=== PATIENT | female | born 2000 | race Caucasian/White ===

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

== ENCOUNTER → 2023-04-20 08:12 | Outpatient (BNVA) | payer OTHER, SELFPAY | PROVIDERS: Visit Provider Physician Assistant ==

== ENCOUNTER 2023-04-26 08:03 | Outpatient (AMB) | payer MEDICAID, SELFPAY ==
--- NOTE | 2023-04-26 08:45 | A.OFFVIS_ITS ---
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 46.2 HPI Details Start time: 8.45am, End time: 9.38am ?I spent 48 minutes speaking with the patient on the phone plus an additional 5 minutes reviewing and updating records for a total of 53 minutes HPI Comments History of Present Illness Details Previous weight loss efforts: exercise and self diets Wakes up: 4pm, Sleeps: 8am Breakfast: skips Lunch: skips Dinner: 8pm (rice, beans and meat) Another meal: 2am rice, beans and meat Snacks: none Exercise: has Gym membership Fluids: Coffee: 1/week, tea: none, soda:Regular coke: 1 bottle per day, juice: 2/week, ETOH: none PFSH Medical History (Updated 04/26/23 @ 08:57 by Harry Turner MD) GERD (gastroesophageal reflux disease) Morbid obesity No pertinent past medical history Surgical History (Updated 04/20/23 @ 09:42 by Maryam Vergara CMA) Hx of knee surgery Hx of tonsillectomy History of surgery on arm Social History (Updated 04/20/23 @ 09:42 by Maryam Vergara CMA) Alcohol intake: current Alcohol intake frequency: holidays/special occasions only Alcohol type: other Comment: mix drinks Patient Tobacco Use Status: Never used Tobacco Assessment & Plan Assessment & Plan (1) Morbid obesity: Code(s): E66.01 - Morbid (severe) obesity due to excess calories Plan: 1.? Plan for lap sleeve gastrectomy. If diaphragmatic or ventral hernias are present at time of surgery, these will be repaired laparoscopically as well. Risks and complications were discussed in detail including possible conversion to an open procedure, anastomotic leak, bleeding requiring transfusion, small bowel obstruction, , DVT and pulmonary embolism, cardiac, or pulmonary complications, as intermediate accountant complications such as anastomotic ulcer, insufficient weight loss and vitamin deficiencies. I emphasized the importance of close follow-up, adherence to instructions and good communication. 2. Nutritional counseling. Start with one CELEBRATE REBUILD protein (buy at [facility]) shake (ONE scoop in 8oz low fat unsweetened almond milk) at 4pm-6pm, dinner at 7pm (10 forks of protein and 10 forks of salad/vegetables), another CELEBRATE REBUILD shake (ONE scoop in 8oz low fat unsweetened almond milk) at 9pm-11pm and 3 protein bars (CELEBRATE protein bars, buy at [facility]) at 12am-2am, 3am-5am and 6am-8am. So you do 2 protein shakes, 3 protein bars and one meal per day. Meal to include lean meat (beef, fish, pork, turkey, chicken), or [place] yogurt, or egg whites, or beans with a salad with olive oil and fruits (berries, pears, apples, kiwi). Avoid salt, breads, potatoes, rice, pasta, desserts. 3. Each shake would be drunk slowly, like coffee in a period of 2 hours. 4. Cut each bar in 4 pieces and eat each piece in 30min ?to make each bar last 2 hours. 5. I emphasized the importance of measuring accurately the food portion and measure it when serving the food in plate 6. The meal portions include 10 full-size forks of meat and 10 full-size forks of salad. You always eat the meat portion but you can replace up to 5 forks for salad/vegetables with rice, potatoes or pasta, or a fruit ?if you like. The less you do it the better weight loss will be. 7. One full-size fork is what it can be scooped on the fork without falling aside and not what can be bit with the fork. Use regular forks like those you find in a typical restaurant. 8.? Please send me weight measurements as soon as possible and then once a week. Always include your diet and exercise plan. 9. Start treadmill with an incline of 2.0 and speed of 3.0. Increase incline by 1 every 3 min to a max incline of 8.0, stay 3min at 8.0 and then return to 2.0 and repeat same steps until 400 calories are burned. Please do this 5 days per week. Goal is to burn 2000 calories per week on exercise. 10.?It is important of avoiding and for at least 18 months postoperatively and has been discussed at the infosession. 11. Goal is to lose at least 1.5-2lbs per week 12. Goal to lose 10% of your weight before surgery, which is about 28lbs. Ultimate weight goal: 253lbs before surgery 13. Please follow the diet plan exactly without any change. If you don't like something about the plan or you feel hungry you need to communicate with me so I can help you revise the plan. You should not change the plan yourself. Orders: Orders IRON PROFILE Today E66.01 - Morbid (severe) obesity due to excess calories, K21.9 - Gastro-esophageal reflux disease without esophagitis Comprehensive Met. Panel Today E66.01 - Morbid (severe) obesity due to excess calories, K21.9 - Gastro-esophageal reflux disease without esophagitis Vitamin B12 and Folate Today E66.01 - Morbid (severe) obesity due to excess calories, K21.9 - Gastro-esophageal reflux disease without esophagitis C Reactive Protein Today E66.01 - Morbid (severe) obesity due to excess calories, K21.9 - Gastro-esophageal reflux disease without esophagitis Vitamin B1 Today E66.01 - Morbid (severe) obesity due to excess calories, K21.9 - Gastro-esophageal reflux disease without esophagitis Vitamin A Today E66.01 - Morbid (severe) obesity due to excess calories, K21.9 - Gastro-esophageal reflux disease without esophagitis US abdomen comp w elastography Today E66.01 - Morbid (severe) obesity due to excess calories, K21.9 - Gastro-esophageal reflux disease without esophagitis FL upper GI w air Today E66.01 - Morbid (severe) obesity due to excess calories, K21.9 - Gastro-esophageal reflux disease without esophagitis Insulin Today E66.01 - Morbid (severe) obesity due to excess calories, K21.9 - Gastro-esophageal reflux disease without esophagitis Hemoglobin A1c Today E66.01 - Morbid (severe) obesity due to excess calories, K21.9 - Gastro-esophageal reflux disease without esophagitis H Pylori Breath Test Today E66.01 - Morbid (severe) obesity due to excess calories, K21.9 - Gastro-esophageal reflux disease without esophagitis Complete Blood Count Auto Diff Today E66.01 - Morbid (severe) obesity due to excess calories, K21.9 - Gastro-esophageal reflux disease without esophagitis Lipid Panel Today E66.01 - Morbid (severe) obesity due to excess calories, K21.9 - Gastro-esophageal reflux disease without esophagitis Zinc Today E66.01 - Morbid (severe) obesity due to excess calories, K21.9 - Gastro-esophageal reflux disease without esophagitis TSH reflex Free T4 Today E66.01 - Morbid (severe) obesity due to excess calories, K21.9 - Gastro-esophageal reflux disease without esophagitis Ferritin Today E66.01 - Morbid (severe) obesity due to excess calories, K21.9 - Gastro-esophageal reflux disease without esophagitis Vitamin D 25-OH Total Today E66.01 - Morbid (severe) obesity due to excess calories, K21.9 - Gastro-esophageal reflux disease without esophagitis XR chest 2V Today E66.01 - Morbid (severe) obesity due to excess calories, K21.9 - Gastro-esophageal reflux disease without esophagitis ECG 12 lead EKG Today E66.01 - Morbid (severe) obesity due to excess calories, K21.9 - Gastro-esophageal reflux disease without esophagitis Referrals Nutrition/Dietitian Referral E66.01 - Morbid (severe) obesity due to excess calories, K21.9 - Gastro-esophageal reflux disease without esophagitis Behavioral Health Referral E66.01 - Morbid (severe) obesity due to excess calories, K21.9 - Gastro-esophageal reflux disease without esophagitis Telehealth Telehealth Location of provider rendering services: practice address Location of patient: address on file Patient Identification confirmed using: Name, : Yes Telehealth method: voice only Patient verbally consented to treatment: Yes Patient verbally consented to billing insurance company: Yes Patient informed of any privacy concerns related to visit: Yes Minutes spent on Phone/Video with Pt.: 53 Coding Level of Care Code Tele New Pt Level 4 (23198) Diagnoses Morbid obesity E66.01 Time Spent (min) 53
[2023-04-26 09:05] VITALS: BMI 46.1
== END 2023-04-26 09:40 | disposition home or self-care (01) ==
LOC: HO.HBS 08:03
PROVIDERS: PCP Student in an Organized Health Care Education/Training Program; Visit Provider Surgery
DX: E66.01 Morbid (severe) obesity due to excess calories (principal); Z68.42 Body mass index [BMI] 45.0-49.9, adult
CPT/HCPCS: 99204

== ENCOUNTER → 2023-04-26 08:03 | Outpatient (BNVA) | payer MEDICAID, SELFPAY | PROVIDERS: PCP Student in an Organized Health Care Education/Training Program; Visit Provider Surgery ==

== ENCOUNTER → 2023-05-17 15:11 | Outpatient (REF) | payer MEDICAID, SELFPAY ==
--- NOTE | 2023-05-17 15:16 | ECG_ITS ---
Test Reason : MORBID OBESITY Blood Pressure : / mmHG Vent. Rate : 087 BPM Atrial Rate : 087 BPM P-R Int : 158 ms QRS Dur : 086 ms QT Int : 362 ms P-R-T Axes : 026 001 003 degrees QTc Int : 435 ms Normal sinus rhythm Normal ECG No previous ECGs available Referred By: Harry Turner Electronically Signed By:STAR GARCIA
[2023-05-17 15:39] LABS: MANUAL DIFF FLAG NO
[2023-05-17 17:56] LABS: Basophils Percent Auto 0.3 % (0-2); Eosinophils Absolute Auto 0.1 X10*3/uL (0.0-0.4); Eosinophils Percent Auto 0.9 % (0-4); Hematocrit 36.8 % (37.0-47.0); Hemoglobin 11.5 g/dl (12.0-16.0); Imm Gran Abs Auto 0.07 X10*3/uL (0.00-0.03); Imm Gran Pct Auto 0.6 % (0.0-0.4); Lymphocytes Absolute Auto 2.4 X10*3/uL (1.2-4.9); Mean Corpuscular HGB Conc 31.3 g/dl (31.0-35.0); Mean Corpuscular Hemoglobin 24.2 pg (27.0-33.0); Mean Corpuscular Volume 77.3 fL (80.0-98.0); Mean Platelet Volume 10.2 fL (9.4-12.3); Monocytes Absolute Auto 0.9 X10*3/uL (0.1-1.2); Monocytes Percent Auto 7.4 % (2-11); Neutrophils Percent Auto 71.8 % (45-73); Platelet Count 336 X10*3/uL (160-400); Red Blood Count 4.76 X10*6/uL (4.20-5.50); Red Cell Distribution Width 13.7 % (11.0-16.0); White Blood Count 12.5 X10*3/uL (4.8-10.8)
[2023-05-17 18:06] LABS: Estimated Average Glucose 88 mg/dL; Hemoglobin A1c % 4.7 % (<6.0)
[2023-05-17 18:35] LABS: Alanine Aminotransferase 21 U/L (0-31); Alkaline Phosphatase 79 U/L (39-117); Anion Gap 13 (12-20); Aspartate Amino Transferase 17 U/L (5-31); Bilirubin Total 0.4 mg/dL (0.0-1.0); Blood Urea Nitrogen 10 mg/dL (9-16); C Reactive Protein 0.81 mg/dL (< or = 0.50); Calcium 9.1 mg/dL (8.4-10.2); Carbon Dioxide 21 mmol/L (22-29); Chloride 108 mmol/L (96-108); Cholesterol 147 mg/dL (<200); Estimated Glomerular Filt Rate > 60; Glucose Random 69 mg/dL (60-115); HDL Cholesterol 40 mg/dL (>40); Iron 44 mcg/dL (30-160); LDL Cholesterol Calculated 98 mg/dL (<100); Percent Iron Saturation 15 % (15-50); Potassium 3.8 mmol/L (3.3-5.1); Sodium 138 mmol/L (135-145); Total Iron Binding Capacity 302 mcg/dL (228-428); Total Protein 7.7 g/dL (6.5-8.0); Triglycerides 48 mg/dL (<150); Unsaturated Iron Binding 258 ug/dL
[2023-05-17 18:50] LABS: Ferritin 38 ng/mL (10-122); Insulin 32 uU/mL (2-29); TSH reflex Free T4 1.42 uIU/mL (0.32-4.0); Vitamin D 25-OH Total 7.7 ng/mL (>30)
[2023-05-17 20:02] LABS: Folate 6.2 ng/mL (> or = 4.0)
[2023-05-18 14:35] LABS: Vitamin B12 381 pg/mL (200-900)
[2023-05-21 23:04] LABS: Vitamin A 29 mcg/dL (38-98)
[2023-05-22 00:19] LABS: Vitamin B1 12 nmol/L (8-30)
[2023-05-24 03:18] LABS: Zinc 89 mcg/dL (60-130)
== END ==
LOC: HO.CARD 15:11
PROVIDERS: Visit Provider Surgery
DX: E66.01 Morbid (severe) obesity due to excess calories (principal); K21.9 Gastro-esophageal reflux disease without esophagitis
CPT/HCPCS: 36415; 71046; 80053; 80061; 82306; 82607; 82728; 82746; 83036; 83525; 83540; 84425; 84443; 84590; 84630; 85025; 86140; 93005

== ENCOUNTER → 2023-05-17 15:16 | Outpatient (BNV) | payer MEDICAID, SELFPAY | PROVIDERS: Visit Provider Internal Medicine | DX: E66.01 Morbid (severe) obesity due to excess calories (principal); Z68.41 Body mass index [BMI] 40.0-44.9, adult | CPT/HCPCS: 93010 ==

== ENCOUNTER 2023-05-19 08:07 | Outpatient (AMB) | payer MEDICAID, SELFPAY ==
--- NOTE | 2023-05-19 08:37 | MHC.OFFVISWM ---
Intake Intake Visit Reasons: TV Follow Up SWL - 1ST Allergies No Known Allergies Allergy (Verified 04/26/23 08:49) HPI TV Follow Up SWL - 1ST HPI Details Start time: 8.29am, End time: 8.49am ?I spent 15 minutes speaking with the patient on the phone plus an additional 5 minutes reviewing and updating records for a total of 20 minutes HPI Comments History of Present Illness Details Just got her scale and will send me weight measurements tomorrow Ordered the Celebrate shakes and bars We reviewed the CXR, EKG and blood work results and prescriptions for low vitamins were sent to her pharmacy [facility] Medical History (Updated 05/19/23 @ 08:46 by Harry Turner MD) GERD (gastroesophageal reflux disease) Morbid obesity Surgical History (Updated 04/20/23 @ 09:42 by Maryam Vergara CMA) Hx of knee surgery Hx of tonsillectomy History of surgery on arm Social History (Updated 04/20/23 @ 09:42 by Maryam Vergara CMA) Alcohol intake: current Alcohol intake frequency: holidays/special occasions only Alcohol type: other Comment: mix drinks Patient Tobacco Use Status: Never used Tobacco Assessment & Plan Assessment & Plan (1) Morbid obesity: Code(s): E66.01 - Morbid (severe) obesity due to excess calories Plan: 1. Nutritional counseling. Start with one CELEBRATE REBUILD protein (buy at [facility]) shake (ONE scoop in 8oz low fat unsweetened almond milk) at 4pm-6pm, dinner at 7pm (10 forks of protein and 10 forks of salad/vegetables), another CELEBRATE REBUILD shake (ONE scoop in 8oz low fat unsweetened almond milk) at 9pm-11pm and 3 protein bars (CELEBRATE protein bars, buy at [facility] [employer] shop) at 12am-2am, 3am-5am and 6am-8am. 2. So you do 2 protein shakes, 3 protein bars and one meal per day. Meal to include lean meat (beef, fish, pork, turkey, chicken), or [place] yogurt, or egg whites, or beans with a salad with olive oil and fruits (berries, pears, apples, kiwi). Avoid salt, breads, potatoes, rice, pasta, desserts. 3. Each shake would be drunk slowly, like coffee in a period of 2 hours. 4. Cut each bar in 4 pieces and eat each piece in 30min ?to make each bar last 2 hours. 5. I emphasized the importance of measuring accurately the food portion and measure it when serving the food in plate 6. The meal portions include 10 full-size forks of meat and 10 full-size forks of salad. You always eat the meat portion but you can replace up to 5 forks for salad/vegetables with rice, potatoes or pasta, or a fruit ?if you like. The less you do it the better weight loss will be. 7. One full-size fork is what it can be scooped on the fork without falling aside and not what can be bit with the fork. Use regular forks like those you find in a typical restaurant. 8.? Please send me weight measurements as soon as possible and then once a week. Always include your diet and exercise plan. 9. Start treadmill with an incline of 2.0 and speed of 3.0. Increase incline by 1 every 3 min to a max incline of 8.0, stay 3min at 8.0 and then return to 2.0 and repeat same steps until 400 calories are burned. Please do this 5 days per week. Goal is to burn 2000 calories per week on exercise. Medications: New cholecalciferol (vitamin D3) 125 mcg PO DAILY 90 caps 0RF E55.9 - Vitamin D deficiency, unspecified mecobalamin (vitamin B12) place tablet under tongue and allow to dissolve for at least30 secs before swallowing 1,000 mcg sublingual DAILY 90 tabs 0RF E53.8 - Deficiency of other specified B group vitamins iron,carbonyl-vitamin C 65 mg iron- 125 mg (Vitron-C) swallow whole; do not chew/break/dissolve/open 1 tab PO DAILY 90 tabs 0RF D64.9 - Anemia, unspecified Telehealth Telehealth Location of provider rendering services: practice address Location of patient: address on file Patient Identification confirmed using: Name, : Yes Telehealth method: voice only Patient verbally consented to treatment: Yes Patient verbally consented to billing insurance company: Yes Patient informed of any privacy concerns related to visit: Yes Minutes spent on Phone/Video with Pt.: 20 Coding Level of Care Code Tele Est Pt Level 3 (95818) Diagnoses Morbid obesity E66.01 Time Spent (min) 20
== END 2023-05-19 08:50 | disposition home or self-care (01) ==
LOC: HO.HBS 08:07
PROVIDERS: PCP Student in an Organized Health Care Education/Training Program; Visit Provider Surgery
DX: E66.01 Morbid (severe) obesity due to excess calories (principal)
CPT/HCPCS: 99213

== ENCOUNTER → 2023-05-19 08:07 | Outpatient (BNVA) | payer MEDICAID, SELFPAY | PROVIDERS: Visit Provider Surgery ==

== ENCOUNTER 2023-05-24 07:02 | Day surgery (SDC) | payer MEDICAID, SELFPAY ==
[2023-05-19 08:30] VITALS: BMI 46.8
--- NOTE | 2023-05-19 23:23 | MHC.SHP ---
Pre-Procedural Eval Section A Date of Service: 05/19/23 The patient is an INPATIENT: No The History & Physical has been completed within 30 days and I have reviewed it.: No Section B Chief Complaint: Morbid (severe) obesity due to excess calories Details of Present Illness: GERD Relevant Family History (Specify if Yes): No Relevant Social History: None Present Medications: None Medical History: No relevant PMH History of Previous Operations: No relevant previous surgery Allergies: Allergies Allergy/AdvReac Type Severity Reaction Status Date / Time No Known Allergies Allergy Verified 04/26/23 08:49 Review of Systems Sugical H&P ROS: Negative: Constitution, Cardiovascular, Respiratory, Neurological, Psychiatric, Hem-Onc, Allergic/Immunologic, Gastrointestinal, Genitourinary, Musculoskeletal, Integumentary, Endocrine and Eyes/Ears/Nose/Throat Exam Surgical H&P Exam: Normal: HEENT, Normal: Heart, Normal: Lungs, Normal: Extremities, Normal: Abdomen, Normal: Skin and Normal: Neurological Plan Diagnosis/Plan: Unchanged (EGD to assess for GERD. Risks for perforation and bleeding were discussed with patient. She is in agreement with the plan) I have reviewed the history and physical and performed a pertinent physical examination on my patient. No changes have occurred unless specified. Time Spent With Patient Time: Total time managing care of this patient today ____ minutes.
--- NOTE | 2023-05-23 09:47 | HO.ANESPROP2 ---
HPI - Anesthesia Eval Consult details Narrative: 22yo F for Upper Endoscopy PMFSH Active Problems Active Problems: All Active Problems (Updated 05/19/23 @ 08:46 by Harry Turner MD) Vitamin B12 deficiency (Acute) Vitamin D deficiency (Acute) Anemia (Acute) GERD (gastroesophageal reflux disease) (Acute) Morbid obesity (Acute) Past Medical History Medical History (Updated 05/19/23 @ 08:46 by Harry Turner MD) GERD (gastroesophageal reflux disease) Morbid obesity Surgical History Surgical History (Updated 04/20/23 @ 09:42 by Maryam Vergara CMA) Hx of knee surgery Hx of tonsillectomy History of surgery on arm Social History Social History (Updated 04/20/23 @ 09:42 by Maryam Vergara CMA) Alcohol intake: current Alcohol intake frequency: holidays/special occasions only Alcohol type: other Comment: mix drinks Patient Tobacco Use Status: Never used Tobacco Meds Allergies Allergy/AdvReac Type Severity Reaction Status Date / Time No Known Allergies Allergy Verified 04/26/23 08:49 Exam Height,Weight and Vital Signs: Height 5 ft 5 in Weight 127.459 kg Pertinent Lab Results Pertinent Lab Results: Laboratory Tests 05/17/23 15:36 WBC 12.5 H Hgb 11.5 L Hct 36.8 L Plt Count 336 Sodium 138 Potassium 3.8 Chloride 108 Carbon Dioxide 21 L BUN 10 Creatinine 0.58 Narrative Narrative: EKG 04/2023 Vent. Rate : 087 BPM Atrial Rate : 087 BPM P-R Int : 158 ms QRS Dur : 086 ms QT Int : 362 ms P-R-T Axes : 026 001 003 degrees QTc Int : 435 ms Normal sinus rhythm Normal ECG No previous ECGs available Assessment and Plan Assessment Anesthesia Assessment: Chart Reviewed
[2023-05-24 07:20] VITALS: BP 122/76; PULSE 81; RESP 16; TEMP 36.7; O2SAT 97; BMI 48.1
[2023-05-24 07:25] LABS: UPreg QC Valid YES; Urine Pregnancy NEGATIVE (NEGATIVE)
--- NOTE | 2023-05-24 07:33 | P.BOP_ITS ---
Brief Operative Note Date of Service: 05/24/23 Pre-op diagnosis: GERF Post-op diagnosis: same Procedure: PROCEDURE DATE: 08/26/2021 PREOPERATIVE DIAGNOSIS: GERD POSTOPERATIVE DIAGNOSIS: ?Same as above. 1) small hiatal hernia, 2) distal gastritis PROCEDURE: [id number] with biopsies Surgeon: Sathya Turner M.D.. Ph.D. Black And White Printer Operator: None ? Anesthesia: IV sedation Estimated blood loss: ?Minimal FINDINGS AND PROCEDURE: ? OPERATIVE INDICATIONS: ?The patient is a 22 year old female known to me who is interested in bariatric surgery. The patient has GERD. Based on this information I recommended an upper endoscopy to evaluate the patient's symptoms. Risks and complications of the surgery were discussed with the patient in advance particularly the possibility of perforation or bleeding that may require surgical intervention. The patient understood the risks and was in agreement with the plan. ? PROCEDURE: After informed consent was obtained by the patient, the patient was ?transferred to the Operating Room and was placed in the supine position.? After successful induction of IV sedation, a mouth block was inserted and the patient was placed in the left lateral decubitus position. An upper endoscopy was performed next, the oropharynx and esophagus appeared within the normal limits. There was no hiatal hernia. The z-line was smooth. Two biopsies were obtained from the distal esophagus 2-3 cm proximal to the GE junction and two additional biopsies from the GE junction. The stomach was entered and it appeared to be of normal size. There was no gastritis at distal antrum. There was no stricture or ulcer. A biopsy was obtained from the distal antrum and proximal fundus. No significant bleeding was noted from any of the biopsy sites. The scope was then advanced into the duodenum which appeared to be normal as well. At that point the duodenum ?and the stomach were decompressed and the scope was withdrawn from the patient's mouth. The patient extubated and was transferred in stable condition to the Recovery Room for further care. I was present and performed all steps of the procedure. There were no residents to assist with this case. Bob Turner M.D., Ph.D. Surgeon: Harry Turner MD Anesthesia: MAC Was an Black And White Printer Operator used for this Procedure?: No Estimated blood loss (mL): 0 IV fluids (mL): 400 Urine output (mL): 0 (No Funez to record output) Pathology: other (1) Antrum x1, 2) Fundusx1, 3) GE junction x2, 4) distal esophagus x2) Condition: stable Disposition: PACU
[2023-05-24] MEDS: Lactated Ringers 1,000 ML 80 ML IVCONT (08:01)
--- NOTE | 2023-05-24 08:04 | HO.ANESPROP2 ---
[facility] Active Problems Active Problems: All Active Problems (Updated 05/19/23 @ 08:46 by Harry Turner MD) Vitamin B12 deficiency (Acute) Vitamin D deficiency (Acute) Anemia (Acute) GERD (gastroesophageal reflux disease) (Acute) Morbid obesity (Acute) Past Medical History Medical History (Updated 05/19/23 @ 08:46 by Harry Turner MD) GERD (gastroesophageal reflux disease) Morbid obesity Patient : No Family History Family history of problems with anesthesia: No Surgical History Surgical History (Updated 04/20/23 @ 09:42 by Maryam Vergara CMA) Hx of knee surgery Hx of tonsillectomy History of surgery on arm History of Problems with Anesthesia: No Social History Social History (Updated 04/20/23 @ 09:42 by Maryam Vergara CMA) Alcohol intake: current Alcohol intake frequency: holidays/special occasions only Alcohol type: other Comment: mix drinks Patient Tobacco Use Status: Never used Tobacco Use of substances other than those prescribed or required for medical reasons: No Are you DNR?: No Advance Directives: No Advance Directives Information Provided: Yes Meds Allergies Allergy/AdvReac Type Severity Reaction Status Date / Time No Known Allergies Allergy Verified 05/24/23 07:18 Active Medications: Current Medications Lactated Ringer's (Lr) 1,000 mls @ 80 mls/hr IVCONT .[id number] [facility] Last Admin: 05/24/23 08:01 Dose: 80 mls/hr Lactated Ringer's (Lr) 1,000 mls @ 100 mls/hr IVCONT .Q10H [facility] Exam Height,Weight and Vital Signs: Height 5 ft 5 in Weight 130.997 kg Last Vital Signs Temp 98.0 F 05/24/23 07:20 Pulse 81 05/24/23 07:20 Resp 16 05/24/23 07:20 BP 122/76 05/24/23 07:20 Pulse Ox 97 05/24/23 07:20 O2 Del Method Room Air 05/24/23 07:20 Pertinent Lab Results Pertinent Lab Results: Laboratory Tests 05/24/23 07:08 Urine Test NEGATIVE Airway Mallampati Class: III TM Dist: >3cm Neck ROM: Full Loose/Missing/Broken Teeth: No Heart: rrr Lungs: clear Assessment and Plan Final Anesthetic Review Family History of Problems with Anesthesia: No History of Problems with Anesthesia: No NPO: Yes ASA Class: II Final Preanesthetic Review: No Changes in Pt Med Stat, Meds/Allgs Chart Reviewed, Consent Obtained/Reviewed and Anes Risks/Benef Reviewed Patient Risk: Intermediate Procedure Risk: Low Anesthetic Plan Anesthetic Plan: MAC: Disposition: Standard PACU
[2023-05-24 08:43] VITALS: BP 91/32; PULSE 89; RESP 28; TEMP 36.3; O2SAT 94
[2023-05-24 08:49] VITALS: BP 109/60; PULSE 82; RESP 22; TEMP 36.2; O2SAT 96
== END 2023-05-24 09:26 | disposition home or self-care (01) ==
PROVIDERS: Nurse Practitioner; Visit Provider Surgery
PROC: 0DJ08ZZ Inspection of Upper Intestinal Tract, Via Natural or Artificial Opening Endoscopic (ICD-10-PCS; CPT 43235; principal; 2023-05-24 08:20)
DX: K21.9 Gastro-esophageal reflux disease without esophagitis (principal); E66.01 Morbid (severe) obesity due to excess calories; Z68.42 Body mass index [BMI] 45.0-49.9, adult; K29.50 Unspecified chronic gastritis without bleeding; K44.9 Diaphragmatic hernia without obstruction or gangrene; Z98.890 Other specified postprocedural states
CPT/HCPCS: 43239; 81025; 88305; 88342; J2704

== ENCOUNTER → 2023-05-24 07:02 | Outpatient (BNV) | payer MEDICAID, SELFPAY | PROVIDERS: Visit Provider Surgery | DX: K21.9 Gastro-esophageal reflux disease without esophagitis (principal) | CPT/HCPCS: 43239 ==

== ENCOUNTER 2023-05-31 13:26 | Outpatient (AMB) | payer MEDICAID, SELFPAY ==
--- NOTE | 2023-05-31 13:24 | MHC.AMNUTRGE ---
Intake Intake Visit Reasons: VIDEO Initial Nutrition SWL Ux Interaction Designer Required: No Allergies No Known Allergies Allergy (Verified 05/24/23 07:18) HPI Nutrition Presentation Reason for consult elevated BMI Diet Assmnt Details I am doing good but i am waiting on my therapist appointment Yesterday ate: didn't eat anything all day 8pm something fast but doesn't remember The day prior didn't eat anything all day just ate dinner - cooked by mom - rice, beans, chicken minimal insight into eating habits Previous weight loss methods attempted Pills , gym in the AM for 1 hour for 2 months and changing eating habits Dietary counseling reduction Who buys your food self Who prepares/cooks your food self Meal frequency regular: breakfast, lunch, dinner and snacks Lifestyle Eating out 4 or more times/week Food frequency Fruit: never, Vegetables: never, Grains/pasta/breads/cereal (carbs): daily, Meats/poultry/fish (protein): daily (no seafood ), Water: daily, Soda: daily, Juice: never and Coffee: never Monitoring/Goals Nutrition problem monitoring total energy intake, level of knowledge/skill, total PRO intake, total CHO intake and weight Outcome progress progressing Learning/Education Readiness to learn good Stages of change action Most Recent Diabetes Results: Cholesterol 147 mg/dL (<200) 05/17/23 HDL Cholesterol 40 mg/dL (>40) L 05/17/23 Triglycerides 48 mg/dL (<150) 05/17/23 Creatinine 0.58 mg/dL (0.5-1.4) 05/17/23 Blood Urea Nitrogen 10 mg/dL (9-16) 05/17/23 Sodium 138 mmol/L (135-145) 05/17/23 Potassium 3.8 mmol/L (3.3-5.1) 05/17/23 Chloride 108 mmol/L (96-108) 05/17/23 Carbon Dioxide 21 mmol/L (22-29) L 05/17/23 Calcium 9.1 mg/dL (8.4-10.2) 05/17/23 AST 17 U/L (5-31) 05/17/23 ALT 21 U/L (0-31) 05/17/23 Total Protein 7.7 g/dL (6.5-8.0) 05/17/23 Albumin 4.0 g/dL (3.5-5.0) 05/17/23 PFSH Medical History (Updated 05/19/23 @ 08:46 by Harry Turner MD) GERD (gastroesophageal reflux disease) Morbid obesity Surgical History (Updated 04/20/23 @ 09:42 by Maryam Vergara CMA) Hx of knee surgery Hx of tonsillectomy History of surgery on arm Social History (Updated 04/20/23 @ 09:42 by Maryam Vergara CMA) Alcohol intake: current Alcohol intake frequency: holidays/special occasions only Alcohol type: other Comment: mix drinks Patient Tobacco Use Status: Never used Tobacco Assessment & Plan Assessment & Plan (1) Morbid obesity: Code(s): E66.01 - Morbid (severe) obesity due to excess calories Plan concerns concerns pts candidacy for bariatric surgery Telehealth Telehealth Location of provider rendering services: practice address Location of patient: address on file Patient Identification confirmed using: Name, : Yes Telehealth method: voice only Patient verbally consented to treatment: Yes Patient verbally consented to billing insurance company: Yes Patient informed of any privacy concerns related to visit: Yes Minutes spent on Phone/Video with Pt.: 20 Coding Level of Care Code Nutr Indiv Intake (66309) Diagnoses Morbid obesity E66.01 Time Spent (min) 20
== END 2023-05-31 13:40 | disposition home or self-care (01) ==
LOC: HO.HBS 13:26
PROVIDERS: Visit Provider Dietitian, Registered
DX: E66.01 Morbid (severe) obesity due to excess calories (principal)

== ENCOUNTER → 2023-05-31 13:26 | Outpatient (BNVA) | payer MEDICAID, SELFPAY | PROVIDERS: Visit Provider Dietitian, Registered | DX: E66.01 Morbid (severe) obesity due to excess calories (principal) | CPT/HCPCS: 97802 ==

== ENCOUNTER 2023-06-02 08:04 | Outpatient (AMB) | payer MEDICAID, SELFPAY ==
--- NOTE | 2023-06-02 08:36 | MHC.OFFVISWM ---
Intake VS Expanded 06/02/23 08:37 Height 5 ft 5 in Weight 279 lb BMI 46.4 Intake Visit Reasons: TV Follow Up SWL Allergies No Known Allergies Allergy (Verified 05/24/23 07:18) HPI TV Follow Up SWL HPI Details Start time: 8.30am, End time: 8.52am ?I spent 17 minutes speaking with the patient on the phone plus an additional 5 minutes reviewing and updating records for a total of 22 minutes HPI Comments History of Present Illness Details Overall weight loss: 2.8lbs, or 1% TBWL Is doing 2 Celebrate Rebuild protein shakes (1 scoop in almond milk), 4 Celebrate protein bars and one meal (11 forks of protein and 11 forks of salad or vegetables) Exercise: is doing treadmill x 4/wk for 200 calories (speed: 3.0 mph, incline 2-8) PFSH Medical History (Updated 06/02/23 @ 08:32 by Harry Turner MD) GERD (gastroesophageal reflux disease) Morbid obesity Surgical History (Updated 04/20/23 @ 09:42 by Maryam Vergara CMA) Hx of knee surgery Hx of tonsillectomy History of surgery on arm Social History (Updated 04/20/23 @ 09:42 by Maryam Vergara CMA) Alcohol intake: current Alcohol intake frequency: holidays/special occasions only Alcohol type: other Comment: mix drinks Patient Tobacco Use Status: Never used Tobacco Assessment & Plan Assessment & Plan (1) Morbid obesity: Code(s): E66.01 - Morbid (severe) obesity due to excess calories Plan: 1. Nutritional counseling. Continue with one CELEBRATE REBUILD protein (buy at hospital[facility]) shake (ONE scoop in 8oz low fat unsweetened almond milk) at 4pm-6pm, dinner at 7pm (TEN forks of protein and TEN forks of salad/vegetables), another CELEBRATE REBUILD shake (ONE scoop in 8oz low fat unsweetened almond milk) at 9pm-11pm and 3 protein bars (CELEBRATE protein bars, buy at [facility]) at 12am-2am, 3am-5am and 6am-8am. 2. So you do 2 protein shakes, 3 protein bars and one meal per day. Meal to include lean meat (beef, fish, pork, turkey, chicken), or japanese yogurt, or egg whites, or beans with a salad with olive oil and fruits (berries, pears, apples, kiwi). Avoid salt, breads, potatoes, rice, pasta, desserts. 3. Each shake would be drunk slowly, like coffee in a period of 2 hours. 4. Cut each bar in 4 pieces and eat each piece in 30min ?to make each bar last 2 hours. 5. I emphasized the importance of measuring accurately the food portion and measure it when serving the food in plate 6. The meal portions include 10 full-size forks of meat and 10 full-size forks of salad. You always eat the meat portion but you can replace up to 5 forks for salad/vegetables with rice, potatoes or pasta, or a fruit ?if you like. The less you do it the better weight loss will be. 7. One full-size fork is what it can be scooped on the fork without falling aside and not what can be bit with the fork. Use regular forks like those you find in a typical restaurant. 8.? Please send me weight measurements as soon as possible and then once a week. Always include your diet and exercise plan. 9. Continue treadmill with an incline of 2.0 and speed of 3.0. Increase incline by 1 every 3 min to a max incline of 8.0, stay 3min at 8.0 and then return to 2.0 and repeat same steps until 400 calories are burned. Please do this at least 4 or 5 days per week. Goal is to burn 2000 calories per week on exercise. Medications: New vitamin A palmitate 10,000 units PO DAILY 60 caps 0RF E50.9 - Vitamin A deficiency, unspecified Telehealth Telehealth Location of provider rendering services: practice address Location of patient: address on file Patient Identification confirmed using: Name, : Yes Telehealth method: voice only Patient verbally consented to treatment: Yes Patient verbally consented to billing insurance company: Yes Patient informed of any privacy concerns related to visit: Yes Minutes spent on Phone/Video with Pt.: 22 Coding Level of Care Code Tele Est Pt Level 3 (03201) Diagnoses Morbid obesity E66.01 Time Spent (min) 22
[2023-06-02 08:37] VITALS: BMI 46.4
== END 2023-06-02 08:53 | disposition home or self-care (01) ==
LOC: HO.HBS 08:04
PROVIDERS: Visit Provider Surgery
DX: E66.01 Morbid (severe) obesity due to excess calories (principal); Z68.42 Body mass index [BMI] 45.0-49.9, adult
CPT/HCPCS: 99213

== ENCOUNTER → 2023-06-02 08:04 | Outpatient (BNVA) | payer MEDICAID, SELFPAY | PROVIDERS: Visit Provider Surgery ==

== ENCOUNTER 2023-06-23 08:02 | Outpatient (AMB) | payer MEDICAID, SELFPAY ==
--- NOTE | 2023-06-23 08:58 | A.OFFVIS_ITS ---
Intake VS Expanded 06/23/23 09:00 Height 5 ft 5 in Weight 282 lb BMI 46.9 Intake Visit Reasons: TV Follow Up SWL Allergies No Known Allergies Allergy (Verified 05/24/23 07:18) HPI TV Follow Up SWL HPI Details Start time: 8.40am, End time: 9.06am ?I spent 21 minutes speaking with the patient on the phone plus an additional 5 minutes reviewing and updating records for a total of 26 minutes HPI Comments History of Present Illness Details Is doing 2 Celebrate Rebuild shakes, 2 Cleebrate bars and one meal (11 forks of protein and 11 forks of salad or vegetables) Exercise: treadmill 5 days per week PFSH Medical History (Updated 06/02/23 @ 08:32 by Harry Turner MD) GERD (gastroesophageal reflux disease) Morbid obesity Surgical History (Updated 04/20/23 @ 09:42 by Maryam Vergara CMA) Hx of knee surgery Hx of tonsillectomy History of surgery on arm Social History (Updated 04/20/23 @ 09:42 by Maryam Vergara CMA) Alcohol intake: current Alcohol intake frequency: holidays/special occasions only Alcohol type: other Comment: mix drinks Patient Tobacco Use Status: Never used Tobacco Assessment & Plan Assessment & Plan (1) Morbid obesity: Code(s): E66.01 - Morbid (severe) obesity due to excess calories Plan: 1. Nutritional counseling. Continue with one CELEBRATE REBUILD protein (buy at [facility] [employer] [facility]) shake (ONE scoop in 8oz low fat unsweetened almond milk) at 4pm-6pm, dinner at 7pm (TEN forks of protein and TEN forks of salad/vegetables), another CELEBRATE REBUILD shake (ONE scoop in 8oz low fat unsweetened almond milk) at 9pm-11pm and 3 protein bars (CELEBRATE protein bars, buy at [facility] [employer] [facility]) at 12am-2am, 3am-5am and 6am-8am. 2. So you do 2 protein shakes, 3 protein bars and one meal per day. Meal to include lean meat (beef, fish, pork, turkey, chicken), or slovenian yogurt, or egg whites, or beans with a salad with olive oil and fruits (berries, pears, apples, kiwi). Avoid salt, breads, potatoes, rice, pasta, desserts. 3. Each shake would be drunk slowly, like coffee in a period of 2 hours. 4. Cut each bar in 4 pieces and eat each piece in 30min ?to make each bar last 2 hours. 5. I emphasized the importance of measuring accurately the food portion and measure it when serving the food in plate 6. The meal portions include 10 full-size forks of meat and 10 full-size forks of salad. You always eat the meat portion but you can replace up to 5 forks for salad/vegetables with rice, potatoes or pasta, or a fruit ?if you like. The less you do it the better weight loss will be. 7. One full-size fork is what it can be scooped on the fork without falling aside and not what can be bit with the fork. Use regular forks like those you find in a typical restaurant. 8.? Please send me weight measurements as soon as possible and then once a week. Always include your diet and exercise plan. 9. Continue treadmill with an incline of 2.0 and speed of 3.0. Increase incline by 1 every 3 min to a max incline of 8.0, stay 3min at 8.0 and then return to 2.0 and repeat same steps until 400 calories are burned. Please do this at least 4 or 5 days per week. Goal is to burn 2000 calories per week on exercise. Telehealth Telehealth Location of provider rendering services: practice address Location of patient: address on file Patient Identification confirmed using: Name, : Yes Telehealth method: voice only Patient verbally consented to treatment: Yes Patient verbally consented to billing insurance company: Yes Patient informed of any privacy concerns related to visit: Yes Minutes spent on Phone/Video with Pt.: 26 Coding Level of Care Code Tele Est Pt Level 3 (55906) Diagnoses Morbid obesity E66.01 Time Spent (min) 26
[2023-06-23 09:00] VITALS: BMI 46.9
== END 2023-06-23 09:07 | disposition home or self-care (01) ==
LOC: HO.HBS 08:02
PROVIDERS: Visit Provider Surgery
DX: E66.01 Morbid (severe) obesity due to excess calories (principal); Z68.42 Body mass index [BMI] 45.0-49.9, adult
CPT/HCPCS: 99213

== ENCOUNTER → 2023-06-23 08:02 | Outpatient (BNVA) | payer MEDICAID, SELFPAY | PROVIDERS: Visit Provider Surgery ==

== ENCOUNTER 2023-06-26 10:28 | Outpatient (AMB) | payer OTHER, SELFPAY ==
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
== END 2023-07-08 15:22 | disposition home or self-care (01) ==
PROVIDERS: Visit Provider Counselor Mental Health
DX: F43.10 Post-traumatic stress disorder, unspecified (principal); E66.01 Morbid (severe) obesity due to excess calories
CPT/HCPCS: 90834

== ENCOUNTER → 2023-06-26 10:28 | Outpatient (BNVA) | payer MEDICAID, SELFPAY | PROVIDERS: Visit Provider Counselor Mental Health ==

== ENCOUNTER 2023-07-14 07:57 | Outpatient (AMB) | payer MEDICAID, SELFPAY ==
--- NOTE | 2023-07-14 08:19 | A.OFFVIS_ITS ---
Intake VS Expanded 07/14/23 09:22 Height 5 ft 5 in Weight 289 lb 4 oz BMI 48.1 Body Fat % 62.8 Body Fat Mass 181.7 Fat Free Mass 107.6 Visceral Fat Rating 28 Body Water % 25.5 Body Water Mass 73.7 Basal Metabolic Rate/Score 1,406 Intake Visit Reasons: TV Follow Up SWL Allergies No Known Allergies Allergy (Verified 05/24/23 07:18) HPI TV Follow Up SWL HPI Details Start time: 8.03am, End time: 8.33am ?I spent 25 minutes speaking with the patient on the phone plus an additional 5 minutes reviewing and updating records for a total of 30 minutes HPI Comments History of Present Illness Details Sleeps: 9am-5.30pm Is doing 2 Celebrate (1 scoop in almond milk), 4 Celebrate protein bars and one meal (11 forks of protein and 11 forks of chicken) PFSH Medical History (Updated 06/26/23 @ 10:36 by Marisol Reyes) GERD (gastroesophageal reflux disease) Morbid obesity Surgical History (Updated 04/20/23 @ 09:42 by Maryam Vergara CMA) Hx of knee surgery Hx of tonsillectomy History of surgery on arm Social History (Updated 04/20/23 @ 09:42 by Maryam Vergara CMA) Alcohol intake: current Alcohol intake frequency: holidays/special occasions only Alcohol type: other Comment: mix drinks Patient Tobacco Use Status: Never used Tobacco Assessment & Plan Assessment & Plan (1) Morbid obesity: Code(s): E66.01 - Morbid (severe) obesity due to excess calories Plan: 1. Nutritional counseling. Continue with one CELEBRATE REBUILD protein ([facility]) shake (ONE scoop in 8oz low fat unsweetened almond milk) at 4pm-6pm, dinner at 7pm (TEN forks of protein and TEN forks of salad/vegetables), another CELEBRATE REBUILD shake (ONE scoop in 8oz low fat unsweetened almond milk) at 9pm-11pm and 3 protein bars (CELEBRATE protein bars, buy at [facility]) at 12am-2am, 3am-5am and 6am-8am. 2. So you do 2 protein shakes, 3 protein bars and one meal per day. Meal to include lean meat (beef, fish, pork, turkey, chicken), or gu[place] yogurt, or egg whites, or beans with a salad with olive oil and fruits (berries, pears, apples, kiwi). Avoid salt, breads, potatoes, rice, pasta, desserts. 3. Each shake would be drunk slowly, like coffee in a period of 2 hours. 4. Cut each bar in 4 pieces and eat each piece in 30min ?to make each bar last 2 hours. 5. I emphasized the importance of measuring accurately the food portion and measure it when serving the food in plate 6. The meal portions include 10 full-size forks of meat and 10 full-size forks of salad. You always eat the meat portion but you can replace up to 5 forks for salad/vegetables with rice, potatoes or pasta, or a fruit ?if you like. The less you do it the better weight loss will be. 7. One full-size fork is what it can be scooped on the fork without falling aside and not what can be bit with the fork. Use regular forks like those you find in a typical restaurant. 8.? Please send me weight measurements as soon as possible and then once a week. Always include your diet and exercise plan. 9. Continue treadmill with an incline of 2.0 and speed of 3.0. Increase incline by 1 every 3 min to a max incline of 8.0, stay 3min at 8.0 and then return to 2.0 and repeat same steps until 400 calories are burned. Please do this at least 4 or 5 days per week. Goal is to burn 2000 calories per week on exercise. Telehealth Telehealth Location of provider rendering services: practice address Location of patient: address on file Patient Identification confirmed using: Name, : Yes Telehealth method: voice only Patient verbally consented to treatment: Yes Patient verbally consented to billing insurance company: Yes Patient informed of any privacy concerns related to visit: Yes Minutes spent on Phone/Video with Pt.: 30 Coding Level of Care Code Tele Est Pt Level 4 (21512) Diagnoses Morbid obesity E66.01 Time Spent (min) 30
[2023-07-14 09:22] VITALS: BMI 48.1
== END 2023-07-14 09:29 | disposition home or self-care (01) ==
LOC: HO.HBS 07:58
PROVIDERS: Visit Provider Surgery
DX: E66.01 Morbid (severe) obesity due to excess calories (principal); Z68.42 Body mass index [BMI] 45.0-49.9, adult
CPT/HCPCS: 99214

== ENCOUNTER → 2023-07-14 07:57 | Outpatient (BNVA) | payer MEDICAID, SELFPAY | PROVIDERS: Visit Provider Surgery ==

== ENCOUNTER 2023-07-20 08:32 | Outpatient (REF) | payer MEDICAID, SELFPAY ==
--- NOTE | ~2023-07-20 | US_ITS ---
EXAMINATION: US COMPLETE ABDOMEN WITH LIVER ELASTOGRAPHY CLINICAL INFORMATION: Obesity. COMPARISON: None available. TECHNIQUE: Real-time imaging of the abdominal viscera. Noninvasive ultrasound liver fibrosis assessment is performed using Shobha ElastPQ point quantification shear wave elastography (2D-SWE) with a C5-2 MHz transducer. Multiple elastography samples are obtained. FINDINGS: PANCREAS: Head and body appear unremarkable. Tail not visualized. ABDOMINAL AORTA: The proximal, middle, and distal aortic segments appear normal in caliber. INFERIOR VENA CAVA: Visualized portions appear normal. LIVER: Diffusely echogenic. Unremarkable in contour. No focal lesion or intrahepatic biliary duct dilatation. The right lobe measures 19.1 cm in length. The left lobe measures 11.6 cm in length. Portal flow is towards the liver (hepatopetal). Shear wave liver elastography median stiffness is 1.48 m/s (reference: normal median stiffness is 1.3 m/s or less). IQR/median stiffness to assess sampling precision is 0.22 (reference: good quality data set is IQR/median stiffness of 0.15 or less). GALLBLADDER: Contracted. No evidence of stones, sludge, polyps, wall thickening or pericholecystic fluid. Technologist reports positive sonographic Martins's sign. COMMON BILE DUCT: Normal in caliber measuring 0.3 cm in diameter. RIGHT KIDNEY: No hydronephrosis. No renal calculi or focal parenchymal lesion identified. The kidney measures 11.8 cm in maximum dimension. LEFT KIDNEY: No hydronephrosis. No renal calculi or focal parenchymal lesion identified. The kidney measures 10.7 cm in maximum dimension. SPLEEN: The spleen measures 8.9 cm in maximum dimension. FREE FLUID: None. US/US abdomen comp w elastography IMPRESSION: Liver elastography: Although measurements appear to rule out compensated advanced chronic liver disease, there is statistical variability of the sampling which decreases accuracy. Fatty infiltration of the liver. Borderline mild hepatomegaly. REFERENCE: Society of Radiologists in Ultrasound Liver Stiffness Thresholds (2020): LIVER STIFFNESS THRESHOLDS: *Liver Stiffness equal or less than 1.3 m/s: High probability of being normal. *Liver Stiffness less than 1.7 m/s: In the absence of other known clinical signs, rules out compensated advanced chronic liver disease. *Liver Stiffness 1.7-2.1 m/s: Suggestive of compensated advanced chronic liver disease but need further test for confirmation. *Liver Stiffness over 2.1 m/s: Rules in compensated advanced chronic liver disease. *Liver Stiffness over 2.4 m/s: Suggestive of clinically significant portal hypertension. QUALITY OF DATA SET: *IQR/Median value equal or less than 0.15 implies a quality data set. *IQR/Median value over 0.15 implies a poor quality data set. OTHER CONSIDERATIONS: The stage of liver fibrosis may be overestimated in the setting of acute hepatitis, liver inflammation, elevated liver function tests, hepatic vascular congestion, obstructive cholestasis, non-fasting state, and infiltrative diseases such as amyloidosis and lymphoma. In some patients with NAFLD, the liver stiffness thresholds for compensated advanced chronic liver disease may be lower. In causes other than viral hepatitis and NAFLD, liver stiffness thresholds are not well established.
== END 2023-07-20 08:33 | disposition home or self-care (01) ==
LOC: HO.US 08:32
PROVIDERS: Visit Provider Surgery
DX: E66.01 Morbid (severe) obesity due to excess calories (principal); K21.9 Gastro-esophageal reflux disease without esophagitis
CPT/HCPCS: 76700; 76981

== ENCOUNTER 2023-07-24 11:14 | Outpatient (AMB) | payer OTHER, SELFPAY ==
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
== END 2023-07-24 11:24 | disposition home or self-care (01) ==
LOC: HO.HBST 11:14
PROVIDERS: Visit Provider Counselor Mental Health
DX: F43.10 Post-traumatic stress disorder, unspecified (principal); E66.01 Morbid (severe) obesity due to excess calories
CPT/HCPCS: 90832

== ENCOUNTER → 2023-07-24 11:14 | Outpatient (BNVA) | payer MEDICAID, SELFPAY | PROVIDERS: Visit Provider Counselor Mental Health | DX: F43.10 Post-traumatic stress disorder, unspecified (principal); E66.01 Morbid (severe) obesity due to excess calories ==

== ENCOUNTER 2023-08-07 07:55 | Outpatient (AMB) | payer MEDICAID, SELFPAY ==
--- NOTE | 2023-08-07 08:20 | MHC.OFFVISWM ---
Intake VS Expanded 08/07/23 08:27 Height 5 ft 5 in Weight 286 lb 8 oz BMI 47.7 Body Fat % 62.1 Body Fat Mass 178.1 Fat Free Mass 108.8 Visceral Fat Rating 28 Body Water % 26 Body Water Mass 74.5 Basal Metabolic Rate/Score 1,446 Intake Visit Reasons: TV Follow Up SWL Allergies No Known Allergies Allergy (Verified 05/24/23 07:18) HPI TV Follow Up SWL HPI Details Start time: 8.12am, End time: 8.32am ?I spent 15 minutes speaking with the patient on the phone plus an additional 5 minutes reviewing and updating records for a total of 20 minutes HPI Comments History of Present Illness Details Is doing 2 Celebrate Rebuild protein shakes (1 scoop in almond milk), 3 Celebrate protein bars, and one meal (11 forks of protein and 11 forks of salad or vegetables) Exercise: is doing treadmill 5 days per week for 400 calories PFSH Medical History (Updated 06/26/23 @ 10:36 by Marisol Reyes) GERD (gastroesophageal reflux disease) Morbid obesity Surgical History (Updated 04/20/23 @ 09:42 by Maryam Vergara CMA) Hx of knee surgery Hx of tonsillectomy History of surgery on arm Social History (Updated 04/20/23 @ 09:42 by Maryam Vergara CMA) Alcohol intake: current Alcohol intake frequency: holidays/special occasions only Alcohol type: other Comment: mix drinks Patient Tobacco Use Status: Never used Tobacco Assessment & Plan Assessment & Plan (1) Morbid obesity: Code(s): E66.01 - Morbid (severe) obesity due to excess calories Plan: 1. Continue same nutritional plan of 2 Celebrate Rebuild protein shakes (1 scoop in almond milk), 3 Celebrate protein bars, and one meal (11 forks of protein and 11 forks of salad or vegetables) 2. Exercise: continue treadmill 5 days per week for 400 calories 3. Send weight measurements weekly on Mondays Telehealth Telehealth Location of provider rendering services: practice address Location of patient: address on file Patient Identification confirmed using: Name, : Yes Telehealth method: voice only Patient verbally consented to treatment: Yes Patient verbally consented to billing insurance company: Yes Patient informed of any privacy concerns related to visit: Yes Minutes spent on Phone/Video with Pt.: 20 Coding Level of Care Code Tele Est Pt Level 3 (13226) Diagnoses Morbid obesity E66.01 Time Spent (min) 20
[2023-08-07 08:27] VITALS: BMI 47.7
== END 2023-08-07 08:33 | disposition home or self-care (01) ==
LOC: HO.HBS 07:57
PROVIDERS: Visit Provider Surgery
DX: E66.01 Morbid (severe) obesity due to excess calories (principal); Z68.42 Body mass index [BMI] 45.0-49.9, adult
CPT/HCPCS: 99213

== ENCOUNTER → 2023-08-07 07:55 | Outpatient (BNVA) | payer MEDICAID, SELFPAY | PROVIDERS: Visit Provider Surgery ==

== ENCOUNTER 2023-08-10 08:13 | Outpatient (REF) | payer MEDICAID, SELFPAY ==
--- NOTE | ~2023-08-10 | FL_ITS ---
EXAMINATION: XR FLUOROSCOPY UPPER GI WITH AIR CLINICAL INFORMATION: Preop evaluation prior to bariatric surgery COMPARISON: None TECHNIQUE: Fluoroscopic air contrast upper GI examination was performed utilizing standard techniques with thin and thick barium and effervescent granules. Numerous spot images were obtained. FINDINGS: Dual and single contrast images of the esophagus demonstrate normal caliber, contour, and mucosal pattern. No evidence of stricture, mass, or ulcerations identified. Esophageal peristalsis was normal. No evidence of hiatus hernia identified. No significant gastroesophageal reflux was seen during the course of the examination and on reflux views. Dual contrast and single contrast images of the stomach demonstrated a normal contour. Evaluation of the mucosal pattern is limited from lack of distention due to poor tolerance of the effervescent granules. No obvious ulcerations or masses are present. Contrast freely passed into the gastric antrum and duodenal bulb without delay. Single and air-contrast images of the duodenal bulb demonstrate no abnormality. The duodenal sweep has a normal appearance, course, and mucosal fold appearance. FLUOROSCOPY TIME: 4 minutes 44 seconds Number of Spot Images: 13 Number of Cine: 12 DOSE AREA PRODUCT: [id number] uGy-m2 (microgray-meter squared) FL/FL upper GI w air IMPRESSION: Evaluation of the gastric mucosa is limited from lack of distention due to poor tolerance of the effervescent granules, however, no obvious ulcerations or masses are present. The remaining part of the exam is unremarkable. This procedure was performed by Benjamin Zhu PA-C, and supervised by Dr. Miranda
== END 2023-08-10 08:14 | disposition home or self-care (01) ==
LOC: HO.XRAY 08:13
PROVIDERS: Visit Provider Surgery
DX: E66.01 Morbid (severe) obesity due to excess calories (principal); K21.9 Gastro-esophageal reflux disease without esophagitis
CPT/HCPCS: 74246

== ENCOUNTER → 2023-08-10 08:14 | Outpatient (BNV) | payer MEDICAID, SELFPAY | PROVIDERS: Visit Provider Physician Assistant Surgical | DX: Z01.818 Encounter for other preprocedural examination (principal); E66.01 Morbid (severe) obesity due to excess calories | CPT/HCPCS: 74246 ==

== ENCOUNTER 2023-08-28 08:07 | Outpatient (AMB) | payer MEDICAID, SELFPAY ==
[2023-08-27 12:25] VITALS: BMI 48.6
--- NOTE | 2023-08-27 12:25 | MHC.OFFVISWM ---
Intake VS Expanded 08/27/23 12:25 Height 5 ft 5 in Weight 292 lb 2 oz BMI 48.6 Body Fat % 63.5 Body Fat Mass 185.5 Fat Free Mass 106.6 Visceral Fat Rating 28 Body Water % 25 Body Water Mass 73 Basal Metabolic Rate/Score 1,417 Intake Visit Reasons: TV Follow Up SWL Allergies No Known Allergies Allergy (Verified 05/24/23 07:18) HPI TV Follow Up SWL HPI Details Start time: 3.20pm, End time: 3.50pm ?I spent 25 minutes speaking with the patient on the phone plus an additional 5 minutes reviewing and updating records for a total of 30 minutes HPI Comments History of Present Illness Details Is doing 2 Celebrate Rebuild protein shakes (1 scoop in almond milk), 3 Celebrate protein bars, and one meal (11 forks of protein and 11 forks of salad or vegetables) Exercise: is doing treadmill 5 days per week for 400 calories PFSH Medical History (Updated 06/26/23 @ 10:36 by Marisol Reyes) GERD (gastroesophageal reflux disease) Morbid obesity Surgical History (Updated 04/20/23 @ 09:42 by Maryam Vergara CMA) Hx of knee surgery Hx of tonsillectomy History of surgery on arm Social History (Updated 04/20/23 @ 09:42 by Maryam Vergara CMA) Alcohol intake: current Alcohol intake frequency: holidays/special occasions only Alcohol type: other Comment: mix drinks Patient Tobacco Use Status: Never used Tobacco Physical Exam Vital Signs: BMI result Body Mass Index 48.6 Assessment & Plan Assessment & Plan (1) Morbid obesity: Code(s): E66.01 - Morbid (severe) obesity due to excess calories Plan: 1. Continue same nutritional plan of Is doing 2 Celebrate Rebuild protein shakes (1 scoop in almond milk), 3 Celebrate protein bars, and one meal (11 forks of protein and 11 forks of salad or vegetables) 2. Exercise: continue treadmill 5 days per week for 400 calories 3. Continue to send me weight measurements weekly on Wednesdays Telehealth Telehealth Location of provider rendering services: practice address Location of patient: address on file Patient Identification confirmed using: Name, : Yes Telehealth method: voice only Patient verbally consented to treatment: Yes Patient verbally consented to billing insurance company: Yes Patient informed of any privacy concerns related to visit: Yes Minutes spent on Phone/Video with Pt.: 30 Coding Level of Care Code Tele Est Pt Level 4 (62549) Diagnoses Morbid obesity E66.01 Time Spent (min) 30
== END 2023-08-28 23:17 | disposition home or self-care (01) ==
LOC: HO.HBS 08:07
PROVIDERS: Referring Provider Student in an Organized Health Care Education/Training Program; Visit Provider Surgery
DX: E66.01 Morbid (severe) obesity due to excess calories (principal); Z68.42 Body mass index [BMI] 45.0-49.9, adult
CPT/HCPCS: 99214

== ENCOUNTER → 2023-08-28 08:07 | Outpatient (BNVA) | payer MEDICAID, SELFPAY | PROVIDERS: Visit Provider Surgery | DX: E66.01 Morbid (severe) obesity due to excess calories (principal) ==